=== PATIENT | male | born 1975 | race Caucasian/White ===

== ENCOUNTER 2018-11-01 17:37 | Inpatient (IN) | payer MEDICAID ==
[~2018-11-01] VITALS: Ht 172.7 cm; Wt 74.1 kg
[2018-11-01 21:14] VITALS: BP 118/64
[2018-11-01] MEDS: ZOLPIDEM TARTRATE 10 MG TABLET PO PRN (22:10)
[2018-11-01] MEDS: LORazepam 2 MG TABLET PO PRN (22:10)
[2018-11-02 01:34] VITALS: BP 112/76
[2018-11-02] MEDS: LORazepam 2 MG TABLET PO PRN ×4 (02:23→18:45)
[2018-11-02 08:11] VITALS: BP 102/68
[2018-11-02 08:18] LABS: BASOPHILS % (AUTO) 0.5 % (0.0-2.0); EOSINOPHILS % (AUTO) 5.2 % (1.0-6.0); HEMATOCRIT 47.5 % (41-53); HEMOGLOBIN 15.2 g/dL (13.5-17.5); LYMPHOCYTES # (AUTO) 2.5 K/uL (1.0-4.8); LYMPHOCYTES % (AUTO) 30.5 % (22.0-44.0); MEAN CORPUSCULAR HEMOGLOBIN 29.6 pg (26.0-34.0); MEAN CORPUSCULAR VOLUME 93 fL (80-100); MONOCYTES # (AUTO) 0.6 K/uL (0.1-1.0); NEUTROPHILS # (AUTO) 4.5 K/uL (1.8-7.7); NEUTROPHILS % (AUTO) 55.8 % (40.0-70.0); PLATELET COUNT (AUTO) 323 K/uL (150-450); RED BLOOD CELL COUNT(AUTO) 5.13 MIL/uL (4.50-5.90); RED CELL DISTRIBUTION WIDTH 14.9 % (11.5-14.5)
[2018-11-02] MEDS: HALOPERIDOL 5 MG TABLET PO PRN ×2 (08:46→13:55)
[2018-11-02 08:52] LABS: HEMOGLOBIN A1C 6.2 % (4.5-6.2)
[2018-11-02 09:05] LABS: ALANINE AMINOTRANSFERASE 21 U/L (12-78); ALBUMIN 3.5 g/dL (3.4-5.0); ALKALINE PHOSPHATASE 94 U/L (46-116); ANION GAP 10 mmol/L (8-16); ASPARTATE AMINOTRANSFERASE 13 U/L (15-37); BILIRUBIN,TOTAL 0.2 mg/dL (0.1-1.0); CALCIUM, TOTAL 9.5 mg/dL (8.8-10.5); CARBON DIOXIDE 28 mmol/L (22-29); CHLORIDE 103 mmol/L (98-107); CHOL/HDL RATIO 4.5 (4.2-7.3); CHOLESTEROL 167 mg/dL (131-200); CREATININE 0.82 mg/dL (0.60-1.30); FREE T4 (FREE THYROXINE) 1.01 ng/dL (0.76-1.46); GLOMERULAR FILTR. RATE CALC > 60 mL/min (>60); GLUCOSE,RANDOM 79 mg/dL (70-110); HDL CHOLESTEROL 37 mg/dL (40-60); LDL CHOL (CALC.) 113 mg/dL (0-130); POTASSIUM 4.6 mmol/L (3.5-5.1); SODIUM SERUM 141 mmol/L (136-145); THYROID STIMULATING HORMONE 0.93 uIU/mL (0.36-3.74); TOTAL PROTEIN, SERUM 6.6 g/dL (6.4-8.2); TRIGLYCERIDES 83 mg/dL (15-150); UREA NITROGEN, BLOOD 12 mg/dL (7-18)
[2018-11-02 16:33] VITALS: BP 106/60
[2018-11-02] MEDS: RisperiDONE 2 MG TABLET PO SCH (20:28)
[2018-11-02] MEDS: ZOLPIDEM TARTRATE 10 MG TABLET PO PRN (20:28)
[2018-11-03 00:01] VITALS: BP 102/68
[2018-11-03] MEDS: HALOPERIDOL 5 MG TABLET PO PRN ×3 (00:19→14:38)
[2018-11-03 08:55] VITALS: BP 115/77
[2018-11-03] MEDS: LORazepam 2 MG TABLET PO PRN ×3 (09:44→20:44)
[2018-11-03 17:05] VITALS: BP 114/68
[2018-11-03] MEDS: ZOLPIDEM TARTRATE 10 MG TABLET PO PRN (20:44)
[2018-11-03] MEDS: RisperiDONE 2 MG TABLET PO SCH (20:44)
[2018-11-04] MEDS ORDERED: RISP2 PO (08:52)
[2018-11-04 09:00] VITALS: BP 106/71
[2018-11-04] MEDS ORDERED: RISP2TAB76 PO (12:00)
== END 2018-11-04 14:22 | disposition home or self-care (01) | DRG 750 ==
LOC: B3A 21:00
DX: F20.0 Paranoid schizophrenia (principal); F10.10 Alcohol abuse, uncomplicated; F12.10 Cannabis abuse, uncomplicated; G44.209 Tension-type headache, unspecified, not intractable; I10 Essential (primary) hypertension; F15.10 Other stimulant abuse, uncomplicated; Z71.41 Alcohol abuse counseling and surveillance of alcoholic; Z71.51 Drug abuse counseling and surveillance of drug abuser; Z79.899 Other long term (current) drug therapy; Z88.5 Allergy status to narcotic agent
CPT/HCPCS: 83036; 84439; 84443; 87081